=== PATIENT | female | born 1995 | race Caucasian/White ===

== ENCOUNTER 2017-03-26 18:27 | Emergency (ER) | payer OTHER ==
[~2017-03-26] VITALS: Ht 170.2 cm; Wt 66.0 kg
[~2017-03-26 18:27] MED LIST: ACETAMINOPHEN-1 EAC1; BENTYL10 MG PO; CLINDAMYCIN HC150 MG PO; PEN-VEE K,VEET500 MG; TRAMADOL HCL50 MG PO; ZOFRAN ODT4 MG PO; ZOFRAN ODT8 MG PO; ZOFRAN4 MG PO
[2017-03-26 19:29] LABS: HEMATOCRIT 45.1 % (36.0-46.0); MCH 32.1 PG (29.0-34.0); MCV 91.7 FL (83-99); MEAN PLAT.VOLUME 10.3 uM^3 (9.5-12.4); PLATELET COUNT 239 K/uL (156-360); RBC DIS.WIDTH-CV 11.5 % (11.8-14.6); RBC DIS.WIDTH-SD 39.2 % (39-53); RED BLOOD COUNT 4.92 M/uL (3.80-5.20); WHITE BLOOD COUNT 15.7 K/uL (4.1-10.2)
[2017-03-26 19:48] LABS: CHLORIDE 105 mEq/L (99-109); POTASSIUM 4.3 mEq/L (3.7-5.4); SODIUM 138 mEq/L (136-147)
[2017-03-26 19:50] LABS: GLUCOSE 104 mg/dL (70-99)
[2017-03-26 19:51] LABS: ANION GAP 10 MEQ/L (2-14)
[2017-03-26 19:52] LABS: TOTAL BILIRUBIN 0.9 mg/dL (0.0-1.0)
[2017-03-26 19:54] LABS: ALKALINE PHOSPHATASE 78 IU/L (3-129); GFR ESTIMATE (CALCULATED) > 59 mL/min/
[2017-03-26 19:55] LABS: UREA NITROGEN (BUN) 13 mg/dL (9-23)
[2017-03-26 19:57] LABS: LIPASE 19 U/L (1.0-51.0)
[2017-03-26 20:06] LABS: QUANTITATIVE HCG 12.4 MIU/ML
[2017-03-26 20:13] LABS: ADD MIUA? YES; BILIRUBIN NEGATIVE; BLOOD NEGATIVE; COLOR YELLOW ((YELLOW)); GLUCOSE (STRIP) NEGATIVE; KETONES 20; LEUKOCYTES NEGATIVE; NITRITE NEGATIVE; PROTEIN (STRIP) NEGATIVE; SPECIFIC GRAVITY 1.032 (1.000-1.030); UROBILINOGEN 0.2 MG/DL (0.2-1.0)
[2017-03-26 20:27] LABS: BACTERIA 3+ /HPF; CASTS NONE SEEN /LPF; EPITHELIAL CELLS 4+ /HPF; MUCUS 3+ /LPF; RED BLOOD CELLS RARE /HPF (0-5); UCUL ADDED? YES; WHITE BLOOD CELLS RARE /HPF (0-5)
[2017-03-26] MEDS ORDERED: KEFLEX500 MG PO (21:38)
[2017-03-26] MEDS ORDERED: ZOFRAN4 MG PO (21:38)
[2017-03-26 21:57] VITALS: BP 115/83
== END 2017-03-26 21:57 | disposition home or self-care (01) ==
LOC: EME 18:27
PROVIDERS: Physician Assistant
DX: O23.41 Unspecified infection of urinary tract in pregnancy, first trimester (principal); O21.9 Vomiting of pregnancy, unspecified; Z3A.00 Weeks of gestation of pregnancy not specified; Z88.5 Allergy status to narcotic agent
CPT/HCPCS: 76770; 80053; 81003; 83690; 84702; 85027; 87086; 99281; 99285

== ENCOUNTER 2017-06-06 08:52 | Emergency (ER) | payer OTHER ==
[~2017-06-06] VITALS: Ht 170.2 cm; Wt 66.4 kg
[~2017-06-06 08:52] MED LIST changes: +KEFLEX500 MG PO
[2017-06-06 09:34] LABS: HEMATOCRIT 42.2 % (36.0-46.0); HEMOGLOBIN 14.6 G/DL (11.9-15.5); MCH 31.1 PG (29.0-34.0); MCHC 34.6 G/DL (30.0-36.0); PLATELET COUNT 205 K/uL (156-360); RBC DIS.WIDTH-CV 11.5 % (11.8-14.6); RBC DIS.WIDTH-SD 37.6 % (39-53); RED BLOOD COUNT 4.69 M/uL (3.80-5.20); WHITE BLOOD COUNT 5.6 K/uL (4.1-10.2)
[2017-06-06 09:44] LABS: ALBUMIN 4.2 g/dL (3.2-4.8); CHLORIDE 105 mEq/L (99-109); POTASSIUM 4.6 mEq/L (3.7-5.4); SODIUM 136 mEq/L (136-147)
[2017-06-06 09:47] LABS: GLUCOSE 95 mg/dL (70-99)
[2017-06-06 09:49] LABS: TOTAL BILIRUBIN 0.6 mg/dL (0.0-1.0)
[2017-06-06 09:50] LABS: ALKALINE PHOSPHATASE 61 IU/L (3-129); CREATININE 0.7 mg/dL (0.6-1.3); GFR ESTIMATE (CALCULATED) > 59 mL/min/
[2017-06-06 09:51] LABS: UREA NITROGEN (BUN) 10 mg/dL (9-23)
[2017-06-06 09:52] LABS: AST (GOT) 18 IU/L (2-34)
[2017-06-06 09:53] LABS: ALT (GPT) 14 IU/L (3-49)
[2017-06-06 10:17] LABS: QUANTITATIVE HCG 50162.6 MIU/ML
[2017-06-06 11:02] LABS: APPEARANCE CLOUDY ((CLEAR)); BILIRUBIN NEGATIVE; BLOOD NEGATIVE; COLOR YELLOW ((YELLOW)); GLUCOSE (STRIP) NEGATIVE; KETONES 5; LEUKOCYTES NEGATIVE; NITRITE NEGATIVE; PROTEIN (STRIP) 30; SPECIFIC GRAVITY 1.026 (1.000-1.030); UROBILINOGEN 0.2 MG/DL (0.2-1.0)
[2017-06-06] MEDS ORDERED: PEPCID20 MG PO (11:09)
[2017-06-06 11:16] LABS: BACTERIA 3+ /HPF; EPITHELIAL CELLS 2+ /HPF; MUCUS 2+ /LPF; RED BLOOD CELLS NONE SEEN /HPF (0-5); UCUL ADDED? YES; WHITE BLOOD CELLS NONE SEEN /HPF (0-5)
[2017-06-06 12:00] VITALS: BP 147/78
== END 2017-06-06 12:00 | disposition home or self-care (01) ==
LOC: EME 08:52
DX: O99.611 Diseases of the digestive system complicating pregnancy, first trimester (principal); K21.9 Gastro-esophageal reflux disease without esophagitis; Z3A.01 Less than 8 weeks gestation of pregnancy; Z88.5 Allergy status to narcotic agent
CPT/HCPCS: 80053; 81003; 84702; 85027; 87086; 99281; 99282

== ENCOUNTER 2017-06-16 17:18 | Emergency (ER) | payer OTHER ==
[~2017-06-16] VITALS: Ht 170.2 cm; Wt 67.0 kg
[~2017-06-16 17:18] MED LIST changes: +PEPCID20 MG PO
[2017-06-16] MEDS ORDERED: METOCLOPRAMIDE10 MG PO (18:15)
[2017-06-16 18:38] LABS: HEMATOCRIT 36.6 % (36.0-46.0); MCH 32.3 PG (29.0-34.0); MCHC 35.5 G/DL (30.0-36.0); MCV 90.8 FL (83-99); PLATELET COUNT 192 K/uL (156-360); RBC DIS.WIDTH-CV 11.7 % (11.8-14.6); RBC DIS.WIDTH-SD 38.7 % (39-53); RED BLOOD COUNT 4.03 M/uL (3.80-5.20)
[2017-06-16 18:48] LABS: CHLORIDE 107 mEq/L (99-109); POTASSIUM 3.8 mEq/L (3.7-5.4); SODIUM 139 mEq/L (136-147)
[2017-06-16 18:50] LABS: APPEARANCE BLOODY ((CLEAR)); COLOR BLOODY ((YELLOW)); LEUKOCYTES SMALL; SPECIFIC GRAVITY 1.024 (1.000-1.030)
[2017-06-16 18:50] LABS: GLUCOSE 99 mg/dL (70-99)
[2017-06-16 18:51] LABS: BILIRUBIN MODERATE; BLOOD LARGE; GLUCOSE (STRIP) NEGATIVE; ICTOTEST NEGATIVE; KETONES NEGATIVE; NITRITE NEGATIVE; PROTEIN (STRIP) 100; UROBILINOGEN 0.2 MG/DL (0.2-1.0)
[2017-06-16 18:54] LABS: CREATININE 0.7 mg/dL (0.6-1.3); GFR ESTIMATE (CALCULATED) > 59 mL/min/
[2017-06-16 18:55] LABS: UREA NITROGEN (BUN) 6 mg/dL (9-23)
[2017-06-16 19:02] LABS: RED BLOOD CELLS TNTC /HPF (0-5); UCUL ADDED? YES
[2017-06-16 19:02] LABS: QUANTITATIVE HCG 7404.6 MIU/ML
[2017-06-16 20:47] VITALS: BP 125/71
== END 2017-06-16 20:47 | disposition home or self-care (01) ==
LOC: EME 17:18
PROVIDERS: Physician Assistant
DX: O03.9 Complete or unspecified spontaneous abortion without complication (principal); N93.9 Abnormal uterine and vaginal bleeding, unspecified; K21.9 Gastro-esophageal reflux disease without esophagitis; Z88.5 Allergy status to narcotic agent
CPT/HCPCS: 76856; 80048; 81003; 84702; 85027; 86850; 86900; 86901; 87086; 99281; 99284

== ENCOUNTER 2017-10-07 20:34 | Emergency (ER) | payer OTHER ==
[~2017-10-07] VITALS: Ht 170.2 cm; Wt 71.2 kg
[~2017-10-07 20:34] MED LIST changes: +METOCLOPRAMIDE10 MG PO
[2017-10-07 21:30] LABS: APPEARANCE SL.HAZY ((CLEAR)); BILIRUBIN NEGATIVE; BLOOD NEGATIVE; COLOR YELLOW ((YELLOW)); GLUCOSE (STRIP) NEGATIVE; KETONES NEGATIVE; LEUKOCYTES NEGATIVE; NITRITE NEGATIVE; PROTEIN (STRIP) 30; SPECIFIC GRAVITY 1.026 (1.000-1.030); UROBILINOGEN 0.2 MG/DL (0.2-1.0)
[2017-10-07 21:45] LABS: BACTERIA RARE /HPF; EPITHELIAL CELLS 3+ /HPF; HYALINE CASTS 0-5 /LPF; MUCUS TRACE /LPF; RED BLOOD CELLS 0-5 /HPF (0-5); UCUL ADDED? NO; WHITE BLOOD CELLS 0-5 /HPF (0-5)
[2017-10-07 22:26] LABS: HEMATOCRIT 38.4 % (36.0-46.0); HEMOGLOBIN 13.8 G/DL (11.9-15.5); MCH 32.4 PG (29.0-34.0); MCHC 35.9 G/DL (30.0-36.0); MCV 90.1 FL (83-99); PLATELET COUNT 215 K/uL (156-360); RBC DIS.WIDTH-CV 11.5 % (11.8-14.6); RBC DIS.WIDTH-SD 37.7 % (39-53); RED BLOOD COUNT 4.26 M/uL (3.80-5.20); WHITE BLOOD COUNT 7.4 K/uL (4.1-10.2)
[2017-10-07 22:43] LABS: CHLORIDE 109 mEq/L (99-109); POTASSIUM 4.2 mEq/L (3.7-5.4); SODIUM 136 mEq/L (136-147)
[2017-10-07 22:44] LABS: GLUCOSE 94 mg/dL (70-99)
[2017-10-07 22:48] LABS: CREATININE 0.8 mg/dL (0.6-1.3); GFR ESTIMATE (CALCULATED) > 59 mL/min/
[2017-10-07 22:49] LABS: UREA NITROGEN (BUN) 14 mg/dL (9-23)
[2017-10-07 22:56] LABS: QUANTITATIVE HCG 3221.5 MIU/ML
[2017-10-07 23:17] VITALS: BP 148/84
== END 2017-10-07 23:18 | disposition home or self-care (01) ==
LOC: EME 20:34
PROVIDERS: Emergency Medicine
DX: O26.891 Other specified pregnancy related conditions, first trimester (principal); O99.611 Diseases of the digestive system complicating pregnancy, first trimester; R10.31 Right lower quadrant pain; Z88.5 Allergy status to narcotic agent; R11.0 Nausea; Z3A.01 Less than 8 weeks gestation of pregnancy
CPT/HCPCS: 76801; 76856; 80048; 81003; 84702; 85027; 86900; 86901; 87086; 99281; 99284

== ENCOUNTER 2017-10-19 10:14 | Emergency (ER) | payer OTHER ==
[~2017-10-19] VITALS: Ht 170.2 cm; Wt 70.2 kg
[2017-10-19 12:38] LABS: BASOPHIL (%) 0.2 % (0-1); EOSINOPHIL (%) 0.3 % (0-5); HEMATOCRIT 37.3 % (36.0-46.0); HEMOGLOBIN 13.3 G/DL (11.9-15.5); IMMATURE GRANULOCYTE (%) 0.2 % (0.0-0.7); LYMPHOCYTE (%) 23.8 % (15-42); LYMPHOCYTE COUNT 1.5 K/uL (1.0-2.8); MCH 31.8 PG (29.0-34.0); MCHC 35.7 G/DL (30.0-36.0); MCV 89.2 FL (83-99); MONOCYTE COUNT 0.7 K/uL (0-0.8); NEUTROPHIL (%) 64.5 % (45-76); NEUTROPHIL COUNT 3.9 K/uL (1.8-6.4); PLATELET COUNT 186 K/uL (156-360); RBC DIS.WIDTH-CV 11.4 % (11.8-14.6); RBC DIS.WIDTH-SD 37.1 % (39-53); RED BLOOD COUNT 4.18 M/uL (3.80-5.20); WHITE BLOOD COUNT 6.1 K/uL (4.1-10.2)
[2017-10-19 12:46] LABS: APPEARANCE CLEAR ((CLEAR)); BILIRUBIN NEGATIVE; BLOOD NEGATIVE; COLOR STRAW ((YELLOW)); GLUCOSE (STRIP) NEGATIVE; KETONES NEGATIVE; LEUKOCYTES TRACE; NITRITE NEGATIVE; PROTEIN (STRIP) NEGATIVE; SPECIFIC GRAVITY 1.008 (1.000-1.030); UROBILINOGEN 0.2 MG/DL (0.2-1.0)
[2017-10-19 12:47] LABS: CHLORIDE 109 mEq/L (99-109); POTASSIUM 4.3 mEq/L (3.7-5.4); SODIUM 137 mEq/L (136-147)
[2017-10-19 12:49] LABS: GLUCOSE 91 mg/dL (70-99)
[2017-10-19 12:53] LABS: CREATININE 0.7 mg/dL (0.6-1.3); GFR ESTIMATE (CALCULATED) > 59 mL/min/
[2017-10-19 12:54] LABS: UREA NITROGEN (BUN) 7 mg/dL (9-23)
[2017-10-19 13:07] LABS: BACTERIA 2+ /HPF; EPITHELIAL CELLS 1+ /HPF; MUCUS NONE SEEN /LPF; RED BLOOD CELLS 0-5 /HPF (0-5); UCUL ADDED? YES; WHITE BLOOD CELLS 0-5 /HPF (0-5)
[2017-10-19 13:20] LABS: QUANTITATIVE HCG 61075.5 MIU/ML
[2017-10-19 15:43] VITALS: BP 116/60
== END 2017-10-19 15:45 | disposition home or self-care (01) ==
LOC: EME 10:14
PROVIDERS: Emergency Medicine
DX: O26.891 Other specified pregnancy related conditions, first trimester (principal); R10.9 Unspecified abdominal pain; O99.611 Diseases of the digestive system complicating pregnancy, first trimester; K21.9 Gastro-esophageal reflux disease without esophagitis; O34.81 Maternal care for other abnormalities of pelvic organs, first trimester; N83.202 Unspecified ovarian cyst, left side; Z3A.01 Less than 8 weeks gestation of pregnancy; Z88.5 Allergy status to narcotic agent
CPT/HCPCS: 76801; 80048; 81003; 84702; 85025; 87086; 99281; 99284